=== PATIENT | male | born 1940 | race Caucasian/White ===

== ENCOUNTER → 2023-07-24 15:01 | Outpatient (REF) | payer OTHER, SELFPAY | LOC: HWRAD 15:01 | PROVIDERS: ATTENDING PHYSICIAN Family Medicine | DX: Z20.828 Contact with and (suspected) exposure to other viral communicable diseases (principal); J01.90 Acute sinusitis, unspecified; R05.2 Subacute cough; I10 Essential (primary) hypertension; E03.9 Hypothyroidism, unspecified; E78.2 Mixed hyperlipidemia; E11.65 Type 2 diabetes mellitus with hyperglycemia | CPT/HCPCS: 71046 ==

== ENCOUNTER → 2023-08-04 09:46 | Outpatient (REF) | payer OTHER, SELFPAY | LOC: HWRAD 09:46 | PROVIDERS: ATTENDING PHYSICIAN Student in an Organized Health Care Education/Training Program; FAMILY PHYSICIAN Family Medicine | DX: K59.00 Constipation, unspecified (principal) | CPT/HCPCS: 74018 ==

== ENCOUNTER → 2023-08-06 15:10 | Outpatient (REF) | payer OTHER, SELFPAY ==
[2023-08-06 16:01] LABS: Blood Urea Nitrogen 35 mg/dl (9-20); Calcium 9.8 mg/dl (8.4-10.2); Carbon Dioxide 30 mmol/L (22-30); Chloride 96 mmol/L (98-107); Glucose 295 mg/dl (70-99); Potassium 4.4 mmol/L (3.5-5.1); Sodium 137 mmol/L (135-145); eGFR 49.25
== END ==
LOC: RAD 15:10
PROVIDERS: ATTENDING PHYSICIAN Student in an Organized Health Care Education/Training Program
DX: K59.00 Constipation, unspecified (principal)
CPT/HCPCS: 36415; 74177; 80048; 82565; Q9967